=== PATIENT | male | born 1980 | race Caucasian/White ===

== ENCOUNTER 2024-03-31 11:17 | Emergency (ER) | payer OTHER ==
[~2024-03-31] VITALS: Ht 177.8 cm; Wt 81.6 kg
[2024-03-31] MEDS: ACETAMINOPHEN ES 500 MG TABLET PO ONE (13:30)
[2024-03-31] MEDS ORDERED: ACETAMINOPHEN ES 500 MG TABLET ONE (13:35)
[2024-03-31 15:43] VITALS: BP 136/90; TEMP 98.8; O2SAT 99
== END 2024-03-31 15:44 | disposition home or self-care (01) ==
LOC: ER 11:20
DX: S80.01XA Contusion of right knee, initial encounter (principal); S80.02XA Contusion of left knee, initial encounter; S09.8XXA Other specified injuries of head, initial encounter; M54.50 Low back pain, unspecified; R07.81 Pleurodynia; Z60.2 Problems related to living alone; Y04.0XXA Assault by unarmed brawl or fight, initial encounter; Y93.89 Activity, other specified; Y92.89 Other specified places as the place of occurrence of the external cause; Y99.8 Other external cause status
CPT/HCPCS: 70450-TC; 70486-TC; 71111-TC; 72100-TC; 73564-TC